=== PATIENT | male | born 1965 | race Caucasian/White ===

== ENCOUNTER 2017-01-11 01:08 | Inpatient (IN) | payer MEDICARE ==
[2017-01-11] VITALS (29 sets, daily range): BP systolic 97–151; BP diastolic 56–105
[~2017-01-11] VITALS: Ht 182.9 cm; Wt 157.0 kg
[2017-01-11] MEDS ORDERED: SODIUM CHLORIDE (ADD-VANTAGE) 100 ML IV ONE (02:08)
[2017-01-11] MEDS ORDERED: DILTIAZEM 100 MG/VIAL (CARDIZEM) ADD-VANTAGE IV ONE (02:08)
[2017-01-11] MEDS ORDERED: DILTIAZEM DRIP 100 MG in SODIUM CHLORIDE (ADD-VANTAGE) 100 ML IV SCH (02:45)
[2017-01-11] MEDS ORDERED: NITROGLYCERIN 0.4 MG SL TABS BTL 25'S SL PRN (03:45)
[2017-01-11] MEDS ORDERED: morphine INJ 10 MG/ML 1ML (SYR OR VIAL) IVP PRN (03:45)
[2017-01-11 04:37] LABS: BASOPHILS % (AUTO) 0 % (0-10); EOSINOPHILS # (AUTO) 0.2 10^3/uL (0.0-0.3); EOSINOPHILS % (AUTO) 2 % (0-10); LYMPHOCYTES # (AUTO) 2.3 X 10^3 (1.0-4.0); LYMPHOCYTES % (AUTO) 30 % (12-44); MEAN CORPUSCULAR HEMOGLOBIN 32 PG (25-34); MEAN CORPUSCULAR HGB CONC 34 G/DL (32-36); MEAN CORPUSCULAR VOLUME 93 FL (80-99); MONOCYTES # (AUTO) 0.7 X 10^3 (0.0-1.0); MONOCYTES % (AUTO) 9 % (0-12); NEUTROPHILS # (AUTO) 4.7 X 10^3 (1.8-7.8); NEUTROPHILS % (AUTO) 59 % (42-75); PLATELET COUNT 240 10^3/uL (130-400); RED BLOOD COUNT 4.43 10^6/uL (4.35-5.85); RED CELL DISTRIBUTION WIDTH 13.6 % (10.0-14.5); WHITE BLOOD COUNT 7.9 10^3/uL (4.3-11.0)
[2017-01-11 04:57] LABS: ALANINE AMINOTRANSFERASE 28 U/L (0-55); ALBUMIN 3.5 GM/DL (3.2-4.5); ANION GAP 12 MMOL/L (5-14); ASPARTATE AMINO TRANSFERASE 17 U/L (5-34); BILIRUBIN,TOTAL 0.3 MG/DL (0.1-1.0); BLOOD UREA NITROGEN 14 MG/DL (7-18); BUN/CREATININE RATIO 18; CALCIUM 8.7 MG/DL (8.5-10.1); CARBON DIOXIDE 21 MMOL/L (21-32); CHLORIDE 110 MMOL/L (98-107); GFR ESTIMATED > 60; GLUCOSE 136 MG/DL (70-105); POTASSIUM 3.7 MMOL/L (3.6-5.0); SODIUM 143 MMOL/L (135-145)
[2017-01-11] MEDS: inSUlin (REGULAR) HUMAN 1 UNIT/0.01 ML (CHARGE PER UNIT) SC SCH ×4 (06:00→20:57)
[2017-01-11] MEDS: MAGNESIUM 1 GM/100 ML IVPB 100 ML IV SCH (06:26)
[2017-01-11] MEDS: KCL 20 MEQ TAB (K-DUR) PO SCH (06:26)
[2017-01-11] MEDS: POTASSIUM CL 10MEQ/50ML IVPB 50 ML IV SCH (06:26)
[2017-01-11] MEDS ORDERED: 1/2 NS IV SOLUTION 1,000 ML IV SCH (08:00)
--- NOTE | 2017-01-11 08:17 | Diagnostic Imaging Report ---
INDICATION: New admission, atrial fibrillation, chest pain, ICU care. FINDINGS: Portable upright view of the chest is obtained without prior films available for comparison. The heart size is upper normal. Vascularity is normal. The lungs are clear. There are no effusions. IMPRESSION: There are no acute findings. Dictated by: Dictated on workstation # [id number]
--- NOTE | 2017-01-11 08:53 | Consultation-Cardiology ---
HPI-Cardiology Cardiology Consultation Date of Consultation 01/11/17 Date of Admission Time Seen by Provider: 08:10 Indication: chest pain, atrial fibrillation HPI Patient is a 51-year-old gentleman with history of paroxysmal atrial fibrillation, morbid obesity, sleep apnea, hypertension. Presented to the ER in [place] yesterday with episode of chest pain. Found to be in atrial fibrillation. Patient reports he has history of paroxysmal A. fib, diagnosed approximately 8-10 years ago. Has been maintained on beta faustina and flecainide as outpatient. Had been prescribed Eliquis in the past, but was unable to afford it. Currently denying any chest pain. Complaining of some mild dyspnea. Denies any dizziness, light headedness, syncope. Complaining of peripheral edema. This is a 51 years old gentleman with history of paroxysmal atrial fibrillation , morbid obesity and sleep apnea. Presented to [address] [place] [address] emergency room with chest pain and palpitation, found to be in atrial fibrillation, reported that he has history of paroxysmal atrial fib ablation has been having palpitation for about 2 weeks. He could not afford Eliquis, has stopped taking his oral anticoagulation and was taking aspirin 325 mg daily. Did not follow-up with a field agent at least for the past 2 years. As per work on weight loss and lost about 200 pounds Home Medications & Allergies Allergies: Coded Allergies: No Known Allergies (Verified Allergy, Unknown, 01/11/17) Home Medication List Reviewed: Yes [id number] Hx Patient Social History Marital Status: Recreational Drug Use: No Smoking Status: Former Smoker Recent Foreign Travel: No Recent Infectious Disease Expo: No Past Medical History PAF, SIGRID, obesity, HTN, DM Family Medical History Significant Family History: No Pertinent Family Hx Constitutional: No chills, No diaphoresis, No dizziness, No fever, malaise, weakness EENTM: No blurred vision, No double vision, No epistaxis, No nose pain Respiratory: No cough, dyspnea on exertion, No short of breath Cardiovascular: chest pain, edema, No Hx of Intervention, palpitations, No syncope, No vascular heart diseas Gastrointestinal: No abdominal pain, No constipation Genitourinary: No discharge, No frequency, No hematuria Musculoskeletal: No back pain, No muscle pain, No muscle weakness, No neck pain Skin: No lesions, No lumps, No rash Psychiatric/Neurological: Denies Anxiety, Denies Depressed Reviewed Test Results Reviewed Test Results Lab Laboratory Tests 01/11/17 04:20: White Blood Count 7.9, Red Blood Count 4.43, Hemoglobin 14.1, Hematocrit 41, Mean Corpuscular Volume 93, Mean Corpuscular Hemoglobin 32, Mean Corpuscular Hemoglobin Concent 34, Red Cell Distribution Width 13.6, Platelet Count 240, Mean Platelet Volume 10.0, Neutrophils (%) (Auto) 59, Lymphocytes (%) (Auto) 30 , Monocytes (%) (Auto) 9, Eosinophils (%) (Auto) 2, Basophils (%) (Auto) 0, Neutrophils # (Auto) 4.7, Lymphocytes # (Auto) 2.3, Monocytes # (Auto) 0.7, Eosinophils # (Auto) 0.2, Basophils # (Auto) 0.0, Sodium Level 143, Potassium Level 3.7, Chloride Level 110H, Carbon Dioxide Level 21, Anion Gap 12, Blood Urea Nitrogen 14, Creatinine 0.80, Estimat Glomerular Filtration Rate > 60, BUN/ Creatinine Ratio 18, Glucose Level 136H, Calcium Level 8.7, Magnesium Level 2.0 , Total Bilirubin 0.3, Aspartate Amino Transf (AST/SGOT) 17, Alanine Aminotransferase (ALT/SGPT) 28, Alkaline Phosphatase 92, Myoglobin 42.0, Troponin I < 0.30, Total Protein 6.0L, Albumin 3.5 01/11/17 09:25: Troponin I < 0.30, Triglycerides Level 83, Cholesterol Level 148, LDL Cholesterol Direct 105, VLDL Cholesterol 17, HDL Cholesterol 27L 01/11/17 10:53: Glucometer 120H ECG Impression ECG Initial ECG Rhythm: A Fib/Flutter Physical Exam Vital Signs Vital Sign - Last 12Hours 01/11/17 01/11/17 02:15 02:18 Temp 98.0 Pulse 76 Resp 20 B/P (MAP) 110/67 Pulse Ox 96 O2 Delivery Room Air Capillary Refill : General Appearance: No Apparent Distress, WD/WN HEENT: PERRL/EOMI, Normal ENT Inspection Neck: Full Range of Motion, Normal Inspection, Non Tender, Supple, No Carotid Bruit Respiratory: Chest Non Tender, Lungs Clear, Normal Breath Sounds, No Accessory Muscle Use, No Respiratory Distress Cardiovascular: No Gallop, No JVD, No Murmur, Irregularly Irregular, Other (+1 edema BLE) Gastrointestinal: Non Tender, Soft Rectal: Deferred Back: No CVA Tenderness Extremity: Non Tender, No Calf Tenderness, Pedal Edema Neurologic/Psychiatric: Alert, Oriented x3, bee farmer II-XII Norm as Tested Skin: Normal Color, Warm/Dry Lymphatic: No Adenopathy A/P-Cardiology Admission Diagnosis Chest pain Atrial fibrillation SIGRID HTN DM Assessment/Plan Chest pain, nonspecific etiology- cardiac enzymes negative, EKG reveals atrial fibrillation, rate controlled. No acute ST changes. Patient reports he has field agent he follows with in [place], however has not seen him in several years, has not had cardiac workup in over 5 years. Planning for further evaluation with Lexiscan stress test in the morning. Continue on telemetry, continue to monitor. Repeat troponin in a.m. Atrial fibrillation-unknown duration. He reports history of paroxysmal atrial fibrillation in the past, diagnosed approximately 8 years ago. Reports he was in the ER several weeks ago with episode of atrial fibrillation, as well as last night. Had been maintained on beta faustina and flecainide as an outpatient. Currently on Cardizem. We will continue to monitor. Further evaluation with 2-D echocardiogram, stress test. [id number] score is 4, yearly risk of stroke without oral anticoagulation is 4 percent, patient was on Eliquis in the past, stopped taking the medication on his own due to the cost, I will start him on Coumadin and try to achieve INR level of 2-3 Obstructive sleep apnea-maintained on CPAP. Continue to monitor. Hypertension-currently controlled. Restart home dose of Lopressor and continue to monitor blood pressure Elevated proBNP-report/history of congestive heart failure in the past. Further evaluation with 2-D echocardiogram. Continue Lasix. Obesity Diabetes mellitus-managed by primary care physician, I will hold metformin at this time Gastroesophageal reflux disease-continue current medication Thank you for allowing us to participate in the management of Mr. Thompson. Mrs. Xenia Nolan PA-C, acting as a scribe for Dr. Barragan. This is Dr. Barragan, I have seen and evaluated the patient with Xenia, he is a 51 years old gentleman admitted with atrial fibrillation, rate is controlled, converted later this afternoon to sinus rhythm, has been started on Lovenox and Coumadin, was unable to afford Eliquis in the past. Has increased risk of stroke due to multiple comorbid condition and multiple risk factors. On examination lungs were clear to auscultation bilaterally, heart is irregular. I am planning to evaluate stress test and echocardiogram, echocardiogram showed normal LV function with enlarged left atrium, planning for stress test in the morning meanwhile I will hold flecainide to rule out underlying coronary artery disease prior to any testing. Has been losing weight and encouraged to continue with weight loss. XENIA NIEVES Jan 11, 2017 08:53 BOBBY BARRAGAN MD Jan 11, 2017 16:06
[2017-01-11] MEDS ORDERED: ASPIRIN E.C. 325 MG (ECOTRIN) TABLET PO SCH (09:00)
[2017-01-11] MEDS ORDERED: CITA20TA7 PO (09:04)
[2017-01-11] MEDS ORDERED: IBUP-30 PO (09:04)
[2017-01-11] MEDS ORDERED: METF500T4 PO (09:04)
[2017-01-11] MEDS ORDERED: ASPI-808 PO (09:04)
[2017-01-11] MEDS ORDERED: LISI-552 PO (09:04)
[2017-01-11] MEDS ORDERED: FURO40TA4 PO (09:04)
[2017-01-11] MEDS ORDERED: METO50TA2 PO (09:04)
[2017-01-11] MEDS ORDERED: LANS15CA PO (09:04)
[2017-01-11] MEDS ORDERED: NITR0.4T SL (09:08)
[2017-01-11] MEDS ORDERED: FLEC100T PO (09:08)
[2017-01-11] MEDS ORDERED: RT-ALBUINH IH (09:10)
[2017-01-11] MEDS ORDERED: INFLUENZA TRIvalent 2017-2018 0.5 ML/45 MCG SYR IM ONE (09:30)
[2017-01-11 10:04] LABS: CHOLESTEROL 148 MG/DL (< 200); DIRECT LDL 105 MG/DL (1-129); TRIGLYCERIDES 83 MG/DL (<150); VLDL CHOLESTEROL 17 MG/DL (5-40)
[2017-01-11] MEDS: ASPIRIN E.C. 81 MG (ECOTRIN) TAB PO SCH (10:04)
[2017-01-11] MEDS: ENOXAPARIN 300 MG/3 ML (LOVENOX) MULTI-DOSE VIAL SQ SCH ×2 (10:04→20:58)
[2017-01-11] MEDS: NS IV 1000 ML 1,000 ML IV SCH ×2 (11:12→13:17)
--- NOTE | 2017-01-11 16:42 | History & Physical-Hospitalist ---
HPI History of Present Illness: HPI/Chief Complaint The patient is a 51-year-old white male from the [place] area. He was transferred by the [place] emergency room nurse practitioner because of atrial fibrillation with a rapid rate and secondary chest pain suggesting angina. He first was known to have atrial fibrillation about 8 years ago. He reports he spends most of his time in sinus rhythm. He had previously been on Eliquis but stopped that as he was unable to afford it. He is presently on a beta faustina and flecainide which has aided in keeping him in sinus rhythm. His has multiple sclerosis and he provides care which is stressful. He has had a couple of short spells of atrial fibrillation the last 2 weeks. Yesterday he was aware of this after he attempted to lift her. He sat down to rest thinking it would pass but it did not and when he developed the chest pressure he sought medical attention. He has subsequently reverted to sinus rhythm in the ICU Source: patient Exam Limitations: no limitations Date Seen 01/11/17 Time Seen by Provider: 16:37 Attending Physician Vince Humphries MD PCP Dilcia Harmon MD Referring Physician Date of Admission Jan 11, 2017 at 02:10 Home Medications & Allergies Home Medications Reviewed patient Home Medication Reconciliation Form Allergies Allergies Coded Allergies No Known Allergies (Verified Allergy, Unknown, 01/11/17) Past [id number]-Vfhdsj-[id number] Hx Patient Social History Marrital Status: Alcohol Use: Occasionally Uses Number of Drinks Today: 0 Alcohol Beverage of Choice: Beer, Rum Recreational Drug Use: No Smoking Status: Former Smoker Former Smoker, Quit: Jan 12, 2012 Physical Abuse Screen: No Sexual Abuse: No Recent Foreign Travel: No Contact w/other who traveled: No Recent Hopitalizations: No Recent Infectious Disease Expo: No Immunizations Up To Date Pediatric: No Seasonal Allergies Seasonal Allergies: No Surgeries Yes (R rotator cuff(x2) R total knee, R finger, BL carpal tunnel SX, R hand sx) Respiratory Yes Currently Using CPAP: Yes Cardiovascular Yes Neurological Yes Genitourinary No Gastrointestinal Yes Gastroesophageal Reflux, Hiatal Hernia Musculoskeletal Yes Degenerate Disk Disease, Arthritis, Back Injury, Chronic Back Pain Endocrine History of Endocrine Disorders: Yes HEENT History of HEENT Disorders: No Cancer No Psychosocial History of Psychiatric Problem: Yes Behavioral Health Disorders: Depression Integumentary History of Skin or Integumenta: No Blood Transfusions History of Blood Disorders: No Adverse Reaction to a Blood Tr: No Family Medical History Significant Family History: No Pertinent Family Hx Family Hx: Cardiovascular disease 19 MOTHER G8 SISTER G8 BROTHER Diabetes mellitus G8 SISTER G8 BROTHER G8 BROTHER FH: breast cancer FH: melanoma 19 MOTHER G8 SISTER Review of Systems Constitutional: see HPI EENTM: no symptoms reported Respiratory: no symptoms reported Cardiovascular: see HPI, chest pain, palpitations Gastrointestinal: no symptoms reported Genitourinary: no symptoms reported Musculoskeletal: no symptoms reported Skin: no symptoms reported Psychiatric/Neurological: No Symptoms Reported Physical Exam Physical Exam Vital Signs Vital Sign - Last 12Hours 01/11/17 01/11/17 02:15 02:18 Temp 98.0 Pulse 76 Resp 20 B/P (MAP) 110/67 Pulse Ox 96 O2 Delivery Room Air Capillary Refill : General Appearance: No Apparent Distress, WD/WN Eyes: Bilateral Eye Normal Inspection HEENT: Normal ENT Inspection Neck: Normal Inspection Respiratory: Chest Non Tender, Lungs Clear, Normal Breath Sounds, No Accessory Muscle Use, No Respiratory Distress Cardiovascular: Regular Rate, Rhythm, No Edema, No Gallop, No JVD, No Murmur, Normal Peripheral Pulses Gastrointestinal: Normal Bowel Sounds, No Organomegaly, No Pulsatile Mass, Non Tender, Soft Back: Normal Inspection, No CVA Tenderness, No Vertebral Tenderness Extremity: Normal Capillary Refill, Normal Inspection, Normal Range of Motion, Non Tender, No Calf Tenderness, No Pedal Edema Neurologic/Psychiatric: Alert, Oriented x3, No Motor/Sensory Deficits, Normal Mood/Affect Skin: Normal Color, Warm/Dry Lymphatic: No Adenopathy Results Results/Procedures Lab Laboratory Tests 01/11/17 04:20 Assessment/Plan Admission Diagnosis 1.atrial fibrillation with rapid ventricular response. 2.chest pain while tachycardic Assessment and Plan Await cardiology recommendations and evaluation Clinical Quality Measures DVT/VTE Risk/Contraindication: Risk Factor Score Per Nursin RFS Level Per Nursing on Admit: 4+=Very High VINCE HUMPHRIES MD Jan 11, 2017 16:42
[2017-01-11] MEDS ORDERED: warFARin 10 MG (COUMADIN) TAB PO SCH (18:00)
[2017-01-11] MEDS: meTOprolol TARTRATE 50 MG (LOPRESSOR) TAB PO SCH (20:57)
[2017-01-12] VITALS: BP 159/88
[2017-01-12] MEDS: NS IV 1000 ML 1,000 ML IV SCH (02:23)
[2017-01-12 04:00] VITALS: BP 159/90
[2017-01-12] MEDS: POTASSIUM CL 10MEQ/50ML IVPB 50 ML IV SCH (06:00)
[2017-01-12] MEDS: inSUlin (REGULAR) HUMAN 1 UNIT/0.01 ML (CHARGE PER UNIT) SC SCH ×2 (06:00→12:11)
[2017-01-12] MEDS: KCL 20 MEQ TAB (K-DUR) PO SCH (06:00)
[2017-01-12] MEDS: MAGNESIUM 1 GM/100 ML IVPB 100 ML IV SCH (06:00)
[2017-01-12] MEDS ORDERED: PANTOPRAZOLE 20 MG TABLET (PROTONIX) PO SCH (07:00)
[2017-01-12] MEDS ORDERED: CATHETER FLUSH 10 ML SYR IV PRN (08:30)
[2017-01-12] MEDS ORDERED: REGADENOSON 0.4 MG/5 ML SYR (LEXISCAN) IV ONE ×2 (09:00→10:30)
[2017-01-12] MEDS ORDERED: FUROSEMIDE 40 MG (LASIX) TAB PO SCH (09:00)
[2017-01-12 10:17] VITALS: BP 146/91
[2017-01-12 12:00] VITALS: BP 148/87
[2017-01-12] MEDS: meTOprolol TARTRATE 50 MG (LOPRESSOR) TAB PO SCH (12:11)
[2017-01-12] MEDS: ASPIRIN E.C. 81 MG (ECOTRIN) TAB PO SCH (12:11)
[2017-01-12 12:15] LABS: INR 1.1 (0.8-1.4); PROTHROMBIN TIME PATIENT 14.2 SEC (12.2-14.7)
[2017-01-12] MEDS: ENOXAPARIN 300 MG/3 ML (LOVENOX) MULTI-DOSE VIAL SQ SCH (12:17)
--- NOTE | 2017-01-12 14:16 | Cardiology Progress Note ---
Subjective Date Seen by Provider: Jan 12, 2017 Time Seen by Provider: 11:00 Subjective/Events-last exam patient is laying down in bed, feeling better, demanding to go home. Stress test showed no ischemia Review of Systems General: No Chills, No Night Sweats, No Fatigue, No Malaise, No Appetite, No Other HEENT: No Head Aches, No Visual Changes, No Eye Pain, No Ear Pain, No Dysphasia , No Sinus Congestion, No Post Nasal Drip, No Sore Throat, No Other Pulmonary: No Dyspnea, No Cough, No Pleuritic Chest Pain, No Other Objective-Cardiology Exam Last Set of Vital Signs Vital Signs 01/12/17 12:00 Temp 98.0 Pulse 66 Resp 20 B/P (MAP) 148/87 Pulse Ox 97 O2 Delivery Room Air Capillary Refill : I&O Intake and Output 01/13/17 00:00 Intake Total 1335 ml Balance 1335 ml Intake Oral 350 ml IV Total 985 ml # Voids 4 # Bowel Movements 1 General: Alert, Oriented X3, Cooperative HEENT: Atraumatic, PERRLA Neck: Supple, No JVD, No Thyromegaly Lungs: Clear to Auscultation, Normal Air Movement Heart: Regular Rate, Normal S1, Normal S2, No Murmurs Abdomen: Normal Bowel Sounds, Soft, No Tenderness, No Hepatosplenomegaly, No Masses Extremities: No Clubbing, No Cyanosis, No Edema, Normal Pulses, No Tenderness/ Swelling Skin: No Rashes, No Breakdown, No Significant Lesion Neuro: Normal Gait, Normal Speech, Strength at 5/5 X4 Ext, Normal Tone, Sensation Intact Psych/Mental Status: Mental Status NL, Mood NL Results Lab Laboratory Tests Test 01/11/17 16:38 01/11/17 20:54 01/12/17 04:30 01/12/17 06:24 Range/Units Glucometer 97 113 H 123 H 70-110 MG/DL Prothrombin Time 14.2 12.2-14.7 SEC INR Comment 1.1 0.8-1.4 Troponin I < 0.30 <0.30 NG/ML Test 01/12/17 11:41 Range/Units Glucometer 109 70-110 MG/DL A/P-Cardiology Admission Diagnosis Chest pain Atrial fibrillation SIGRID HTN DM Assessment/Plan Chest pain, nonspecific etiology- cardiac enzymes negative, EKG reveals atrial fibrillation, rate controlled. No acute ST changes. Patient reports he has foreign trade teacher he follows with in [place], however has not seen him in several years, has not had cardiac workup in over 5 years. stress test showed no ischemia or infarction. Atrial fibrillation-unknown duration. He reports history of paroxysmal atrial fibrillation in the past, diagnosed approximately 8 years ago. Reports he was in the ER several weeks ago with episode of atrial fibrillation, as well as last night. Had been maintained on beta faustina and flecainide as an outpatient. Currently on Cardizem. echocardiogram showed normal left ventricular size and function. Stress test showed no ischemia or infarction, I will restart flecainide and discharged home [id number] score is 4, yearly risk of stroke without oral anticoagulation is 4 percent, patient was on Eliquis in the past, stopped taking the medication on his own due to the cost, continue on Coumadin and discharged on Coumadin and Lovenox and follow-up as an outpatient, monitor INR closely Obstructive sleep apnea-maintained on CPAP. Continue to monitor. Hypertension, Good controlled, continue current medications and monitor Elevated BNP-report/history of congestive heart failure in the past. Further evaluation with 2-D echocardiogram. Continue Lasix. Obesity Diabetes mellitus-managed by primary care physician, I will hold metformin at this time Gastroesophageal reflux disease-continue current medication Clinical Quality Measures DVT/VTE Risk/Contraindication: Risk Factor Score Per Nursin RFS Level Per Nursing on Admit: 4+=Very High BOBBY BROOKS MD Jan 12, 2017 14:16
[2017-01-12] MEDS ORDERED: ENOX300V3 SQ (14:19)
[2017-01-12] MEDS ORDERED: WARF5TAB PO (14:19)
--- NOTE | 2017-01-12 23:04 | STRESS TEST ---
DATE OF SERVICE: 01/12/2017 LEXISCAN MYOVIEW STRESS TEST REPORT Baseline heart rate is 70. Baseline blood pressure 146/91. Baseline EKG is sinus rhythm with no ischemic changes. In summary, the patient was injected with 10.97 mCi of technetium-99 Myoview and the resting images were obtained. Then, the patient received 0.4 mg of Lexiscan followed by 31.6 mCi of technetium-99 Myoview. Throughout the test, there were no EKG changes. The resting and stress images were reviewed and compared in the short axis, horizontal long axis, and vertical long axis views. Review of the images showed mild decreased uptake at the mid to apical anterior wall with subtle reversibility. There is fixed defect at the base of the inferior wall secondary to the diaphragmatic attenuation. SSS is 4, SDS zero, TID value 0.75. On the gated images, the left ventricle appeared to be prominent due to patient body habitus with end diastolic volume 179 mL, end systolic volume 106 mL, hypokinesia at the lateral wall with calculated ejection fraction 41%. CONCLUSION: 1. The patient tolerated Lexiscan well. 2. Extracardiac attenuation affecting the quality of the images with questionable decrease uptake at the anterior wall, no significant reversibility. 3. Prominent left ventricle with mild hypokinesia at the lateral wall, calculated ejection fraction 41%. Job ID: [id number] DocumentID: [id number] Dictated Date: 01/12/2017 16:11:44 Solar Photovoltaic Designer Date: 01/12/2017 21:51:16 Dictated By: BOBBY BROOKS MD [facility]
== END 2017-01-12 13:50 | disposition home or self-care (01) | DRG 309 ==
LOC: ICU 02:10
PROVIDERS: ADMIT Internal Medicine; ATTEND Internal Medicine
DX: I48.91 Unspecified atrial fibrillation (principal); R07.9 Chest pain, unspecified; E66.01 Morbid (severe) obesity due to excess calories; Z68.42 Body mass index [BMI] 45.0-49.9, adult; I10 Essential (primary) hypertension; R60.0 Localized edema; G47.33 Obstructive sleep apnea (adult) (pediatric); E11.9 Type 2 diabetes mellitus without complications; K21.9 Gastro-esophageal reflux disease without esophagitis; K44.9 Diaphragmatic hernia without obstruction or gangrene; M19.91 Primary osteoarthritis, unspecified site; M54.9 Dorsalgia, unspecified; F32.9 Major depressive disorder, single episode, unspecified; Z87.891 Personal history of nicotine dependence; Z91.19 Patient's noncompliance with other medical treatment and regimen; Z96.651 Presence of right artificial knee joint
CPT/HCPCS: 36415; 71010; 78452; 80053; 80061; 82962; 83735; 83874; 84484; 85025; 85610; 93005; 93017; 93306

== ENCOUNTER 2017-01-17 09:02 | Outpatient (RCR) | payer MEDICARE ==
[2017-01-14 12:06] LABS: INR 1.4 (0.8-1.4); PROTHROMBIN TIME PATIENT 17.4 SEC (12.2-14.7)
[~2017-01-17 09:02] MED LIST: ASPI-808 PO; CITA20TA7 PO; ENOX300V4 SQ; FLEC100T PO; FURO40TA4 PO; IBUP-30 PO; LANS15CA PO; LISI-552 PO; METF500T4 PO; METO50TA15 PO; NITR0.4T SL; RT-ALBUINH IH; WARF5TAB PO
[2017-01-17 09:27] LABS: INR 1.4 (0.8-1.4); PROTHROMBIN TIME PATIENT 17.1 SEC (12.2-14.7)
== END 2017-04-14 | disposition home or self-care (01) ==
LOC: LAB 09:02
PROVIDERS: ATTEND Internal Medicine Cardiovascular Disease
DX: I48.91 Unspecified atrial fibrillation (principal)
CPT/HCPCS: 36415; 85610

== ENCOUNTER 2019-05-01 09:09 | Outpatient (RCR) | payer MEDICARE ==
[~2019-05-01 09:09] MED LIST changes: -CITA20TA7 PO; +CITA20TA9 PO; +METF-397 PO; -METF500T4 PO
[2019-05-01 10:22] LABS: INR 1.8 (0.8-1.4); PROTHROMBIN TIME PATIENT 21.8 SEC (12.2-14.7)
== END 2019-07-30 | disposition home or self-care (01) ==
LOC: LAB 09:09
PROVIDERS: ATTEND Family Medicine
DX: Z51.81 Encounter for therapeutic drug level monitoring (principal); Z79.01 Long term (current) use of anticoagulants
CPT/HCPCS: 36415; 85610

== ENCOUNTER → 2019-08-09 | Outpatient (CLI) | payer MEDICARE ==
[~2019-08-09] MED LIST changes: -WARF5TAB PO; +WARF5TAB2 PO
[2019-08-09 12:23] LABS: ALANINE AMINOTRANSFERASE 43 U/L (0-55); ALKALINE PHOSPHATASE 100 U/L (40-136); BILIRUBIN,TOTAL 0.4 MG/DL (0.1-1.0); BUN/CREATININE RATIO 16; CALCIUM 9.3 MG/DL (8.5-10.1); CARBON DIOXIDE 26 MMOL/L (21-32); CHLORIDE 100 MMOL/L (98-107); GFR ESTIMATED > 60; GLUCOSE 211 MG/DL (70-105); SODIUM 139 MMOL/L (135-145); TOTAL PROTEIN 6.8 GM/DL (6.4-8.2)
[2019-08-09 12:24] LABS: ALBUMIN 3.9 GM/DL (3.2-4.5)
[2019-08-09 15:01] LABS: INR 2.7 (0.8-1.4); PROTHROMBIN TIME PATIENT 28.6 SEC (12.2-14.7)
[2019-08-09 15:16] LABS: TRIGLYCERIDES 323 MG/DL (<150); VLDL CHOLESTEROL 65 MG/DL (5-40)
[2019-08-09 15:21] LABS: CHOLESTEROL 201 MG/DL (< 200)
[2019-08-09 15:22] LABS: HDL CHOLESTEROL 35 MG/DL (40-60)
== END ==
LOC: LAB FS 11:34
PROVIDERS: ATTEND Family Medicine
DX: I48.91 Unspecified atrial fibrillation (principal); E11.9 Type 2 diabetes mellitus without complications
CPT/HCPCS: 36415; 80053; 80061; 82043; 83036; 85610

== ENCOUNTER 2021-10-16 12:51 | Emergency (ER) | payer MEDICARE ==
[~2021-10-16] VITALS: Ht 182.9 cm; Wt 152.9 kg
[~2021-10-16 12:51] MED LIST changes: -LISI-552 PO; +LISI20TA26 PO
--- NOTE | 2021-10-16 13:25 | ED Abdominal Pain ---
General Chief Complaint: Abdominal/GI Problems Stated Complaint: GROIN PAIN Source of Information: Patient Exam Limitations: No Limitations History of Present Illness Date Seen by Provider: Oct 16, 2021 Time Seen by Provider: 13:10 Initial Comments Patient is a 55yo male who presents to the ED with a chief complaint of diffuse abdominal pain. pain that radiates into the right groin. Seen by Dr Song about 2-3 weeks ago and has a right inguinal hernia. He was not amenable to surgery at the time of visit due to personal issues. He has been wering briefs for support. But he has to take care of his disabled and that requires lifting. He states the pain has worsened over the last couple of days. N/V. decreased urine output and Bowel movements that are uncomfortable and "not as productive". No F/C. No URI symptoms. Nothing specifically makes the pain better or worse. "Pain medications" don't really help. Only prior history of abdominal surgeries are 2-3 unbilical hernia repairs - with mesh. All other ROS reviewed and neg except as stated. Timing/Duration: 1 Week Severity/Quality: Moderate, Cramping Location: Generalized Abdomen Radiation: Groin (right) Activities at Onset: None Modifying Factors: Worsens With Movement Associated Symptoms: Nausea/Vomiting Allergies and Home Medications Allergies Coded Allergies: No Known Allergies (Verified Allergy, Unknown, 01/11/17) Patient Home Medication List Home Medication List Reviewed: Yes Albuterol Sulfate (Proair Hfa) 1 Puff Puff, 2 PUFF IH Q4H PRN for SHORTNESS OF BREATH, (Reported) Entered as Reported by: LUIS ARAUJO on 01/11/17 0910 Citalopram Hydrobromide (Citalopram HBr) 20 Mg Tablet, 20 MG PO HS, (Reported) Entered as Reported by: LUIS ARAUJO on 01/11/17 0904 Enoxaparin Sodium (Enoxaparin Sodium) 300 Mg/3 Ml Vial, 150 MG SQ Q12H Prescribed by: BOBBY BROOKS on 01/12/17 1419 Flecainide Acetate (Flecainide Acetate) 100 Mg Tablet, 100 MG PO BID, (Reported) Entered as Reported by: LUIS ARAUJO on 01/11/17 0908 Furosemide (Furosemide) 40 Mg Tablet, 40 MG PO DAILY, (Reported) Entered as Reported by: LUIS ARAUJO on 01/11/17 09 Ibuprofen (Advil) 200 Mg Tablet, 800 MG PO BID, (Reported) Entered as Reported by: LUIS ARAUJO on 01/11/17 09 Lansoprazole (Prevacid 24Hr) 15 Mg Capsule.dr, 15 MG PO DAILY, (Reported) Entered as Reported by: LUIS ARAUJO on 01/11/17 09 Lisinopril (Lisinopril) 20 Mg Tablet, 20 MG PO BID, (Reported) Entered as Reported by: LUIS ARAUJO on 01/11/17 09 Metformin HCl (Metformin HCl) 500 Mg Tablet, 500 MG PO BID WITH MEALS, (Reported) Entered as Reported by: LUIS ARAUJO on 01/11/17903 Metoprolol Tartrate (Metoprolol Tartrate) 50 Mg Tablet, 50 MG PO BID, (Reported) Entered as Reported by: LUIS ARAUJO on 01/11/17 09 Naproxen (Naprosyn) 500 Mg Tablet, 500 MG PO BID Prescribed by: GLORY MAHARAJ on 10/16/21 1530 Nitroglycerin (Nitrostat) 0.4 Mg Tab.subl, 0.4 MG SL UD PRN for CHEST PAIN, (Reported) Entered as Reported by: LUIS ARAUJO on 01/11/17 09 Ondansetron (Ondansetron Odt) 8 Mg Tab.rapdis, 8 MG PO Q8H PRN for nausea Prescribed by: GLORY MAHARAJ on 10/16/21 153 Warfarin Sodium (Coumadin) 5 Mg Tablet, 5 MG PO DAILY Prescribed by: BOBBY BROOKS on 01/12/17 1419 Review of Systems Review of Systems Constitutional: see HPI EENTM: No Symptoms Reported Respiratory: No Symptoms Reported Cardiovascular: No Symptoms Reported Gastrointestinal: Abdominal Pain, Nausea, Vomiting, Other (porr bowel movements) Genitourinary: Pain, Urgency, Other ("dribbling") Musculoskeletal: no symptoms reported Skin: no symptoms reported Psychiatric/Neurological: No Symptoms Reported All Other Systems Reviewed Negative Unless Noted: Yes Past Yctmcmr-Zfctjo-Yhgbuk Hx Patient Social History Tobacco Use?: Yes Tobacco type used: Cigars Smoking Status: Current Everyday Smoker Smokeless Tobacco Frequency: Never a User Use of E-Cig and/or Vaping dev: No Use of E-Cig and/or Vaping Remy: Never a User Substance use?: No Alcohol Use?: Yes Alcohol Frequency: Once in a while Pt feels they are or have been: No Immunizations Up To Date PED Vaccines UTD: No COVID19 Vaccine Cbx Operator: MODERNA Seasonal Allergies Seasonal Allergies: No Past Medical History Surgeries: Yes (R rotator cuff(x2) R total knee, R finger, BL carpal tunnel SX, R hand sx) Respiratory: Yes Sleep Apnea Currently Using CPAP: Yes Cardiac: Yes Neurological: Yes Genitourinary: No Gastrointestinal: Yes Gastroesophageal Reflux, Hiatal Hernia Musculoskeletal: Yes Degenerate Disk Disease, Arthritis, Back Injury, Chronic Back Pain Endocrine: Yes HEENT: No Cancer: No Psychosocial: Yes Depression Integumentary: No Blood Disorders: No Adverse Reaction/Blood Tranf: No Family Medical History Cardiovascular disease 19 MOTHER G8 SISTER G8 BROTHER Diabetes mellitus G8 SISTER G8 BROTHER G8 BROTHER FH: breast cancer FH: melanoma 19 MOTHER G8 SISTER No Pertinent Family Hx Physical Exam Vital Signs Vital Signs - First Documented 10/16/21 10/16/21 13:00 15:51 Temp 36.0 Pulse 82 Resp 17 B/P (MAP) 133/75 (94) Pulse Ox 98 O2 Delivery Room Air Capillary Refill : Height/Weight/BMI Height: 6'0.00" Weight: 346lbs. 3.2oz. [id number]; 46.7 BMI Method: General Appearance: WD/WN, mild distress HEENT: PERRL/EOMI Respiratory: lungs clear, normal breath sounds, no respiratory distress, no accessory muscle use Cardiovascular: regular rate, rhythm Gastrointestinal: soft, tenderness (diffuse; BS slightly huperactive) Extremities: normal range of motion, normal inspection Neurologic/Psychiatric: alert, normal mood/affect, oriented x 3 Skin: normal color, warm/dry Progress/Results/Core Measures Results/Orders Lab Results Laboratory Tests Test 10/16/21 13:37 10/16/21 13:53 Range/Units White Blood Count 7.9 4.3-11.0 10^3/uL Red Blood Count 4.66 4.30-5.52 10^6/uL Hemoglobin 15.4 13.3-17.7 g/dL Hematocrit 45 40-54 % Mean Corpuscular Volume 96 80-99 fL Mean Corpuscular Hemoglobin 33 25-34 pg Mean Corpuscular Hemoglobin Concent 34 32-36 g/dL Red Cell Distribution Width 13.1 10.0-14.5 % Platelet Count 238 130-400 10^3/uL Mean Platelet Volume 9.4 9.0-12.2 fL Immature Granulocyte % (Auto) 1 % Neutrophils (%) (Auto) 63 42-75 % Lymphocytes (%) (Auto) 28 12-44 % Monocytes (%) (Auto) 7 0-12 % Eosinophils (%) (Auto) 2 0-10 % Basophils (%) (Auto) 1 0-10 % Neutrophils # (Auto) 5.0 1.8-7.8 10^3/uL Lymphocytes # (Auto) 2.2 1.0-4.0 10^3/uL Monocytes # (Auto) 0.5 0.0-1.0 10^3/uL Eosinophils # (Auto) 0.2 0.0-0.3 10^3/uL Basophils # (Auto) 0.0 0.0-0.1 10^3/uL Immature Granulocyte # (Auto) 0.0 0.0-0.1 10^3/uL Sodium Level 138 135-145 MMOL/L Potassium Level 5.1 H 3.6-5.0 MMOL/L Chloride Level 104 98-107 MMOL/L Carbon Dioxide Level 22 21-32 MMOL/L Anion Gap 12 5-14 MMOL/L Blood Urea Nitrogen 24 H 7-18 MG/DL Creatinine 0.94 0.60-1.30 MG/DL Estimat Glomerular Filtration Rate 95 BUN/Creatinine Ratio 26 Glucose Level 172 H 70-105 MG/DL Calcium Level 10.0 8.5-10.1 MG/DL Corrected Calcium 9.9 8.5-10.1 MG/DL Total Bilirubin 0.4 0.1-1.0 MG/DL Aspartate Amino Transf (AST/SGOT) 34 5-34 U/L Alanine Aminotransferase (ALT/SGPT) 60 H 0-55 U/L Alkaline Phosphatase 100 40-136 U/L Total Protein 7.1 6.4-8.2 GM/DL Albumin 4.1 3.2-4.5 GM/DL Urine Color YELLOW Urine Clarity SL CLOUDY Urine pH 5.5 5-9 Urine Specific [place] 1.020 1.016-1.022 Urine Protein NEGATIVE NEGATIVE Urine Glucose (UA) NEGATIVE NEGATIVE Urine Ketones NEGATIVE NEGATIVE Urine Nitrite NEGATIVE NEGATIVE Urine Bilirubin NEGATIVE NEGATIVE Urine Urobilinogen 0.2 < = 1.0 MG/DL Urine Leukocyte Esterase NEGATIVE NEGATIVE Urine RBC (Auto) NEGATIVE NEGATIVE Urine RBC NONE /HPF Urine WBC NONE /HPF Urine Squamous Epithelial Cells 0-2 /HPF Urine Crystals NONE /LPF Urine Bacteria NEGATIVE /HPF Urine Casts NONE /LPF Urine Mucus NEGATIVE /LPF Urine Culture Indicated NO My Orders Orders - GLORY MAHARAJ MD Ua Culture If Indicated (10/16/21 13:17) Cbc With Automated Diff (10/16/21 13:17) Comprehensive Metabolic Panel (10/16/21 13:17) Bladder Scan (10/16/21 13:17) Ed Iv/Invasive Line Start (10/16/21 13:17) Fentanyl Inj (Sublimaze Injection) (10/16/21 13:30) Ct Abdomen/Pelvis Wo (10/16/21 14:21) Vital Signs/I&O 10/16/21 10/16/21 13:00 15:51 Temp 36.0 36.2 Pulse 82 68 Resp 17 17 B/P (MAP) 133/75 (94) 144/91 Pulse Ox 98 O2 Delivery Room Air Room Air Progress Progress Note : Time: 15:25 Progress Note Patient declined pain medications. HIs work up including labs and imaging are reassuring that no acute infectious or surgical process is present. I offered naproxen and zofran. He is agreeable. He will follow up with Dr Song for further management of his right inguinal hernia. REturn precautions provided. All questions are sought and answered. Departure Impression Primary Impression: Abdominal pain Qualified Codes: R10.84 - Generalized abdominal pain Additional Impression: Right inguinal hernia Disposition: 01 HOME, SELF-CARE Condition: Stable Departure-Patient Inst. Decision time for Depature: 15:27 Referrals: CONRADO SANTAMARIA MD (PCP/Family) Primary Care Physician Patient Instructions: Groin Hernia (DC) Add. Discharge Instructions: Drink plenty of fluids to stay well hydrated. Naproxen 500mg twice a day with food as needed for pain. Zofran 8mg every 8 hours as needed for nausea. If you have worsening pain, with vomiting or fever, please come back to the Emergency Department for re-evaluation. Please call Dr Song's office when you have your sorted out to make a plan for hernia repair. Scripts Ondansetron (Ondansetron Odt) 8 Mg Tab.rapdis 8 MG PO Q8H PRN for nausea, #20 TAB Prov: GLORY MAHARAJ MD 10/16/21 Naproxen (Naprosyn) 500 Mg Tablet 500 MG PO BID, #30 TAB 0 Refills Prov: GLORY MAHAARJ MD 10/16/21 Copy Copies To 1: MARILYN SONG DO Copies To 2: CONRADO SANTAMARIA MD, KATHRYN M MD Oct 16, 2021 13:25
[2021-10-16] MEDS ORDERED: fentaNYL INJ 100 MCG/2 ML AMP IVP ONE (13:30)
[2021-10-16 13:51] LABS: BASOPHILS % (AUTO) 1 % (0-10); EOSINOPHILS # (AUTO) 0.2 10^3/uL (0.0-0.3); EOSINOPHILS % (AUTO) 2 % (0-10); HEMATOCRIT 45 % (40-54); HEMOGLOBIN 15.4 g/dL (13.3-17.7); LYMPHOCYTES # (AUTO) 2.2 10^3/uL (1.0-4.0); LYMPHOCYTES % (AUTO) 28 % (12-44); MEAN CORPUSCULAR HEMOGLOBIN 33 pg (25-34); MEAN CORPUSCULAR HGB CONC 34 g/dL (32-36); MEAN CORPUSCULAR VOLUME 96 fL (80-99); MEAN PLATELET VOLUME 9.4 fL (9.0-12.2); MONOCYTES # (AUTO) 0.5 10^3/uL (0.0-1.0); MONOCYTES % (AUTO) 7 % (0-12); NEUTROPHILS % (AUTO) 63 % (42-75); PLATELET COUNT 238 10^3/uL (130-400); WHITE BLOOD COUNT 7.9 10^3/uL (4.3-11.0)
[2021-10-16 13:55] LABS: ALBUMIN 4.1 GM/DL (3.2-4.5); POTASSIUM 5.1 MMOL/L (3.6-5.0)
[2021-10-16 13:57] LABS: TOTAL PROTEIN 7.1 GM/DL (6.4-8.2)
[2021-10-16 13:59] LABS: BILIRUBIN,TOTAL 0.4 MG/DL (0.1-1.0)
[2021-10-16 14:01] LABS: CREATININE SERUM 0.94 MG/DL (0.60-1.30)
[2021-10-16 14:09] LABS: BILIRUBIN,URINE NEGATIVE (NEGATIVE); CLARITY,URINE SL CLOUDY; COLOR,URINE YELLOW; GLUCOSE, URINE (UA) NEGATIVE (NEGATIVE); KETONES,URINE NEGATIVE (NEGATIVE); LEUKOCYTE ESTERASE ,URINE NEGATIVE (NEGATIVE); NITRITE,URINE NEGATIVE (NEGATIVE); PH,URINE 5.5 (5-9); PROTEIN,URINE NEGATIVE (NEGATIVE)
[2021-10-16 14:16] LABS: BACTERIA,URINE NEGATIVE /HPF; SQUAMOUS EPITHELIAL CELL,UR 0-2 /HPF
--- NOTE | 2021-10-16 14:57 | Diagnostic Imaging Report ---
CT ABDOMEN/PELVIS WO TECHNIQUE: Unenhanced CT imaging of the abdomen and pelvis was performed. 2-D reformats are created and submitted for interpretation. Automatic exposure controls were utilized to optimize patient dose. INDICATION: Abdominal pain COMPARISON: None available. FINDINGS: Evaluation of the abdominal viscera is suboptimal without contrast. Lower chest: The lung bases are clear. No pericardial or pleural effusion. Peritoneum: No free intraperitoneal air or fluid. Liver and biliary system: Unenhanced liver is normal. Contracted gallbladder without radiopaque gallstones. No biliary duct dilatation. Spleen and Pancreas: Spleen is normal. Unenhanced pancreas is grossly normal. Adrenals: Normal. tract: No renal or ureteral calculi. No obstructive uropathy. Urinary bladder is decompressed. Prostate is not enlarged. GI tract: Stomach is decompressed. No bowel obstruction. Descending colon diverticulosis without diverticulitis. Normal appendix. Vasculature and Lymph nodes: Normal caliber aorta. No abdominal or pelvic lymphadenopathy. Musculoskeletal: No concerning osseous lesion. Chronic bilateral pars defects of L5 with grade 1 anterolisthesis. Prior ventral hernia repair without recurrent hernia. IMPRESSION: 1. No acute obstructive or inflammatory process. 2. No urinary tract calculi. Dictated by: Dictated on workstation # [id number]
[2021-10-16] MEDS ORDERED: NAPR-1071 PO (15:30)
[2021-10-16] MEDS ORDERED: ONDA8TAB13 PO (15:30)
[2021-10-16 15:51] VITALS: BP 144/91
== END 2021-10-16 15:51 | disposition home or self-care (01) ==
LOC: EDUNIT# 12:51 → ER 12:54
DX: K40.90 Unilateral inguinal hernia, without obstruction or gangrene, not specified as recurrent (principal); G47.30 Sleep apnea, unspecified; F17.290 Nicotine dependence, other tobacco product, uncomplicated; Z99.89 Dependence on other enabling machines and devices
CPT/HCPCS: 36415; 74176; 80053; 81000; 85025

== ENCOUNTER 2021-10-28 05:34 | Outpatient (CLI) | payer MEDICARE ==
[~2021-10-28] VITALS: Ht 182.9 cm; Wt 154.2 kg
[~2021-10-28 05:34] MED LIST changes: +NAPR-1071 PO; +ONDA8TAB13 PO
[2021-10-28] MEDS ORDERED: WARF7.5T3 PO (12:10)
== END 2021-10-28 13:30 | disposition home or self-care (01) ==
LOC: PREOP 05:34
PROVIDERS: ATTEND Surgery
DX: Z01.818 Encounter for other preprocedural examination (principal)

== ENCOUNTER 2021-11-04 08:28 | Day surgery (SDC) | payer MEDICARE ==
[2021-11-04] VITALS (11 sets, daily range): BP systolic 105–150; BP diastolic 59–75
[~2021-11-04] VITALS: Ht 182.9 cm; Wt 154.2 kg
[~2021-11-04 08:28] MED LIST changes: +WARF7.5T3 PO
[2021-11-04] MEDS ORDERED: ceFAZolin INJECTION 2,000 MG in NS (IVPB) 50 ML IV ONE (09:00)
[2021-11-04] MEDS: LACTATED RINGERS 1,000 ML IV PRN ×3 (09:34→14:06)
[2021-11-04] MEDS ORDERED: LIDOCAINE/EPI 2% 1:200,00 (XYLOCAINE) 20 ML VIAL ONE (10:43)
[2021-11-04] MEDS ORDERED: MIDAZOLAM 2 MG/2 ML (VERSED) VIAL ONE (10:59)
[2021-11-04] MEDS ORDERED: LIDOCAINE PF 2% 5 ML (XYLOCAINE) VIAL ONE (10:59)
[2021-11-04] MEDS ORDERED: ROCURONIUM 10 MG/ML 5 ML SYRINGE IV ONE ×3 (10:59→14:32)
[2021-11-04] MEDS ORDERED: fentaNYL INJ 100 MCG/2 ML AMP ONE ×2 (10:59→15:59)
[2021-11-04] MEDS ORDERED: proPOfol 200 MG/20 ML (DIPRIVAN) VIAL IV ONE ×2 (10:59→11:37)
--- NOTE | 2021-11-04 11:03 | Progress Note-Pre Operative ---
Pre-Operative Progress Note Date of Available H&P: Oct 08, 2021 Date H&P Reviewed: Nov 04, 2021 Time H&P Reviewed: 11:01 History & Physical: H&P Reviewed, Patient Examed, No changes noted Pre-Operative Diagnosis: Right inguinal hernia MARILYN SONG DO Nov 04, 2021 11:03
[2021-11-04] MEDS ORDERED: methylPREDNISolone 125 MG (Solu-MEDROL) VIAL ONE (11:37)
[2021-11-04] MEDS ORDERED: SUCCINYLCHOLINE INJ 100 MG/5 ML SYR/VIAL ONE (11:37)
[2021-11-04] MEDS ORDERED: LIDOCAINE/EPI 2% 1:200,00 (XYLOCAINE) 10 ML VIAL IJ ONE (11:45)
[2021-11-04] MEDS ORDERED: HYDROmorphone 2 MG/ML VIAL (DILAUDID) ONE (13:38)
[2021-11-04] MEDS ORDERED: SEVOFLURANE (ULTANE) 15 ML INHAL SOLN ONE (15:21)
--- NOTE | 2021-11-04 15:39 | Progress Note-Post Operative ---
Post-Operative Progess Note Surgeon (s)/Oncology Radiation Physician (s) Surgeon MARILYN SONG DO Oncology Radiation Physician: Drew Pre-Operative Diagnosis Right inguinal hernia Post-Operative Diagnosis Left Indirect Inguinal hernia Right direct inguinal hernia B/L cord lipoma Procedure & Operative Findings Date of Procedure 11/04/21 Procedure Performed/Findings 1) B/L Laparoscopic inguinal herniarraphy with mesh placement 2) Excision of B/L Cord Lipoma After informed consent was obtained, the patient was brought to the operating room and placed on the operating table in a supine position. He was sterilely prepped and draped in a normal fashion. Local lidocaine was used to infiltrate the skin above the umbilicus. I made an incision with #11 blade, carried down to the skin into subcutaneous tissue and then deepened down the subcutaneous tissue with Bovie electrocautery down to the fascia. Fascia was incised with Bovie electrocautery and bluntly entered the abdomen, swept a finger around, placed 0 Vicryl [id number] suture and placed limited trocar port under direct visualization. Created pneumoperitoneum and noted adhesions to the umbilical hernia mesh. Placed two 8 mm ports about 10 cm on either side of the midline port using a local lidocaine, 11 blade for stab incision and then advanced the robotic port under direct visualization. I then used a Ligasure to take down the midline adhesions so that I could see. I noted a direct hernia on the right and a large indirect on the left. I had not talked about repairing the left; therefore, I went and asked his what she would like me to do and she asked that I fix both of them. I I then placed the patient in Trendelenburg, docked the robot and then placed the working instruments, the fenestrated bipolar and the scissors. Looked on the left side and saw a large indirect inguinal hernia. I could see the beginnings of a direct hernia defect on the right side. Next, I came across the peritoneum on the left approximately 8 cm away from the hernia defect, going across laterally from the median umbilical ligament out approximately 17cm. I then carefully dissected the visceral peritoneum away and down and then in the midline, went through the parietal side and dissected down to the pubic tubercle, dissecting this down carefully pushing the peritoneum away, I was able to then visualize the pubic tubercle and Jose's ligament. As I did this I encountered a large hernia on the right; Direct inguinal hernia with fat stuck in it. I went 2 cm posterior and at this point, we then had a critical view of the dissection, able to dissect 2 cm across the midline to the right side, 2 cm posterior to the Jose's ligament, able to then parietalize the vas deferens and spermatic vessels right at the groove between Jose's and iliac vein and able to dissect, make sure there was no peritoneum between those two, able to see the indirect hernia space, took a picture of this, looked at the femoral space (no hernia seen). Then I carefully teased out the hernia sac and could visualize the indirect hernia space. Next I looked on the cord and cord structures. There was a large cord lipoma that I was able to reduce and cut off. This was then removed through the port to get it out of the peritoneal space; at the end of the case. I could clearly see the inguinal canal and the indirect space. Next I carried the posterior lateral dissection all the way out. This was to take care of the planned hernia on the right; this needed to be repaired as well. Therefore, on the right I began dissecting out laterally taking the peritoneum down in order to place mesh. This was carried down and connected to the Left side's dissection. So at this point, I then had a critical view of the dissection on the right. I was able to dissect 2 cm across the midline to the right side, 2 cm posterior to the Jose's ligament, able to then parietalize the vas deferens and spermatic vessels right at the groove between Jose's and iliac vein and able to dissect, make sure there was no peritoneum between those two, able to see the indirect hernia space, took a picture of this, looked at the femoral space and no hernia was seen. Then I carefully teased everything off cord and cord structures (very minimal indirect sac) and could visualize the indirect hernia space. Next I looked on the cord and cord structures. There was a large cord lipoma that I was able to reduce and cut off. This was then removed through the port to get it out of the peritoneal space; at the end of the case. I could clearly see the inguinal canal and the indirect space. I then placed a 12 x 17 Midweight Bard 3DMax mesh, on the right. On the left I placed a 12 x 17 Midweight Bard 3D Max. Both laid in nicely, covered the hernia defects and the rest of the area. It was above the peritoneum, sutured both at the pubic tubercle with a 3-0 Vicryl suture and tied this off. I also sutured out laterally to hold mesh in position with 3-0 Vicryl, both sides. They appeared to lay in very nicely. I then brought down the pneumoperitoneum to about 8 mmHg and then started closing the peritoneum. Started laterally and used a 2-0 V-lock barbed suture to start a running stitch to close the peritoneum. This was done on both sides and closed nicely, took a picture of the closure at this point, then removed all needles had switched to a suture trailer truck driver from the scissors. The patient was then placed back supine, removed all ports under direct visualization, allowed pneumoperitoneum to escape and then closed the supraumbilical incision, closing the fascia with 0 Vicryl suture previously placed. Copiously irrigated all incisions and then closed the two small 8 mm incisions with two interrupted 4-0 undyed Monocryl subcuticular stitches and closed the supraumbilical incision with three interrupted undyed Monocryl subcuticular stitch. Area was cleaned and dried. Dermabond was placed. The patient tolerated the procedure. The sponge, instrument and needle counts were correct at the end of the case. Dr. Russell assisted on this case helping to make incisions, identify anatomy, pass instrumentation suture and mesh. Anesthesia Type GET Estimated Blood Loss Estimated blood loss (mL): appx 50 ml Specimens/Packing Specimens Removed b/l cord lipoma MARILYN SONG DO Nov 04, 2021 15:39
[2021-11-04] MEDS ORDERED: ACHYD1T PO (15:42)
--- NOTE | 2021-11-04 15:44 | Anesthesia-General Post-Op ---
General Patient Condition Mental Status/LOC: Same as Preop Cardiovascular: Satisfactory Nausea/Vomiting: Absent Respiratory: Satisfactory Pain: Controlled Complications: Absent Post Op Complications Complications None Follow Up Care/Instructions Patient Instructions None needed. Anesthesia/Patient Condition Patient Condition Patient is doing well, no complaints, stable vital signs, no apparent adverse anesthesia problems. No complications reported per nursing. SAPPHIRE HUA CRNA Nov 04, 2021 15:44
--- NOTE | 2021-11-04 15:44 | Discharge Inst-Surgical ---
Discharge Inst-Surgical Depart Medication/Instructions New, Converted or Re-Newed RX: Transmitted to Pharmacy Patient Instructions Follow up Appt: Make appointment for 1 week. [phone] Instructions: No lifting greater than 20 pounds. No strenuous activity. May shower in 24 hours, no tub bath or soaking. Use incentive spirometer at home as directed. No Smoking Skin/Wound Care: May remove bandages in am. You need to leave the Dermabond on incision it will fall off on it's own. Symptoms to Report: Appetite Changes, Extremity Discoloration, Numbness/Tingling, Swelling Increased, Bleeding Excessive, Eyesight Changes, Pain Increased, Urine Color Change, Constipation(Persistent), Fever over 101 degree F, Pain/Pressure in chest, Urinating Difficulty, Cough Up/Vomit Blood, Heart Beat Irreg/Pounding, Pain/Pressure in jaw, Cramps in feet or legs, Lightheadedness, Pain/Pressure in shoulder, Diarrhea(Persistent), Memory Changes Suddenly, Questions/Concerns, Weight gain consecutive days, Dizziness/Fainting, Nausea/Vomiting, Shortness of Breath, Weight gain over 2 pounds If questions or concerns contact your physician Or seek help at emergency department. Activity Activity as Tolerated: Yes Activity Instructions: Avoid Stress to Incision Driving Instructions: No Driving/Refer to Dr. Sierra Discharge Diet: No Restrictions Diet After 24 Hours: Clear Liquid if Nauseous If Any Problems/Questions/Issu: Contact Your Physician, Go to Emergency Room Skin/Wound Care Infection Signs and Symptoms: Increased Redness, Foul Odor of Wound, Increased Drainage, Skin Itchy or Has a Rash, Increased Swelling, Temperature Above 101 F Wound Care Comment: Heating pad to shoulder or neck tonight for pain Bathing Instructions: Shower Stitches/[place]/Dermabond Dis: Dermabond Ice Pack: Ice On and Off Site MARILYN SONG DO Nov 04, 2021 15:44
[2021-11-04] MEDS ORDERED: fentaNYL INJ 100 MCG/2 ML AMP IVP ONE (15:45)
[2021-11-04] MEDS ORDERED: ONDANSETRON 4 MG/2 ML (SDV) Z0FRAN IVP PRN (15:45)
== END 2021-11-04 17:46 | disposition home or self-care (01) ==
LOC: SDC 08:28
PROVIDERS: ATTEND Surgery
DX: K40.20 Bilateral inguinal hernia, without obstruction or gangrene, not specified as recurrent (principal); E66.01 Morbid (severe) obesity due to excess calories; Z68.42 Body mass index [BMI] 45.0-49.9, adult; G47.33 Obstructive sleep apnea (adult) (pediatric); Z79.899 Other long term (current) drug therapy; F17.210 Nicotine dependence, cigarettes, uncomplicated; D17.6 Benign lipomatous neoplasm of spermatic cord
CPT/HCPCS: 49650; 55559; 82947; 87081; C1781 ×2

== ENCOUNTER 2022-01-13 03:28 | Emergency (ER) | payer MEDICARE ==
[~2022-01-13] VITALS: Ht 182.8 cm; Wt 137.0 kg
[~2022-01-13 03:28] MED LIST changes: +ACHYD1T PO; +ALBU8.5H6 IH; -RT-ALBUINH IH
--- NOTE | 2022-01-13 03:32 | ED General ---
General Stated Complaint: POSSIBLE STROKE History of Present Illness Date Seen by Provider: Jan 13, 2022 Time Seen by Provider: 03:32 Initial Comments 56-year-old male brought in following an unknown syncopal event. Patient reports the last thing he remembers is around 12[birth year]25[birth year]1929 when he was walking and thinks he fell onto a table. He reports that he woke up couple hours later and "pissed himself" patient is known to drink daily and reports he had a "couple shots of rum" patient is complaining of some posterior right thigh/hamstring pain. He reports it feels like a cramp. He denies any lower leg or calf pain. Patient denies chest pain, shortness of breath both now and prior to his syncopal event Allergies and Home Medications Allergies Coded Allergies: No Known Allergies (Verified Allergy, Unknown, 01/11/17) Patient Home Medication List Home Medication List Reviewed: Yes Albuterol Sulfate (Ventolin Hfa) 1 Puff Puff, 2 PUFF IH Q4H PRN for SHORTNESS OF BREATH, (Reported) Entered as Reported by: LUIS ARAUJO on 01/11/17 0910 Citalopram Hydrobromide (Citalopram HBr) 20 Mg Tablet, 20 MG PO HS, (Reported) Entered as Reported by: LUIS ARAUJO on 01/11/17 09 Flecainide Acetate (Flecainide Acetate) 100 Mg Tablet, 100 MG PO BID, (Reported) Entered as Reported by: LUIS ARAUJO on 01/11/17 09 Furosemide (Furosemide) 40 Mg Tablet, 40 MG PO DAILY, (Reported) Entered as Reported by: LUIS ARAUJO on 01/11/17 09 Hydrocodone Bit/Acetaminophen (HYDROcodone/APAP 10/325 TABLET) 1 Ea Tab, 1 TAB PO Q6H Prescribed by: MARILYN SONG on 11/04/21 1543 Ibuprofen (Advil) 200 Mg Tablet, 800 MG PO BID, (Reported) Entered as Reported by: LUIS ARAUJO on 01/11/17 09 Lansoprazole (Prevacid 24Hr) 15 Mg Capsule.dr, 15 MG PO DAILY, (Reported) Entered as Reported by: LUIS ARAUJO on 01/11/17 09 Lisinopril (Lisinopril) 20 Mg Tablet, 20 MG PO BID, (Reported) Entered as Reported by: LUIS ARAUJO on 01/11/17 09 Metformin HCl (Metformin HCl) 500 Mg Tablet, 1,000 MG PO BID WITH MEALS, (Reported) Entered as Reported by: LUIS ARAUJO on 01/11/17 09 Metoprolol Tartrate (Metoprolol Tartrate) 50 Mg Tablet, 50 MG PO BID, (Reported) Entered as Reported by: LUIS ARAUJO on 01/11/17 09 Nitroglycerin (Nitrostat) 0.4 Mg Tab.subl, 0.4 MG SL UD PRN for CHEST PAIN, (Reported) Entered as Reported by: LUIS ARAUJO on 01/11/17 09 Warfarin Sodium (Warfarin Sodium) 7.5 Mg Tablet, 7.5 MG PO DAILY, (Reported) Entered as Reported by: QUINTON LI on 10/28/21 1210 Review of Systems Review of Systems Constitutional: see HPI; No chills, No dizziness, No fever EENTM: no symptoms reported Respiratory: no symptoms reported Cardiovascular: No chest pain, No palpitations; syncope Gastrointestinal: No abdominal pain, No nausea, No vomiting Genitourinary: No dysuria, No frequency; incontinence Musculoskeletal: No back pain; muscle cramps Skin: no symptoms reported Psychiatric/Neurological: No Symptoms Reported Past Fhupckh-Pqnxld-Tnzlqk Hx Immunizations Up To Date Tetanus Booster (TDap): Unknown PED Vaccines UTD: No First/Initial COVID19 Vaccinat: 2020 Second COVID19 Vaccination Navi: 2020 Third COVID19 Vaccination Date: 2020 Seasonal Allergies Seasonal Allergies: No Past Medical History Surgeries: Yes (R rotator cuff(x2) R total knee, R finger, BL carpal tunnel SX, R hand sx) Respiratory: Yes Sleep Apnea, COPD Currently Using CPAP: Yes Currently Using BIPAP: No Cardiac: Yes Atrial Fibrillation, Hypertension Neurological: Yes TIA Genitourinary: No Gastrointestinal: Yes Gastroesophageal Reflux, Hiatal Hernia Musculoskeletal: Yes Degenerate Disk Disease, Arthritis, Back Injury, Chronic Back Pain Endocrine: Yes Diabetes, Non-Insulin dep HEENT: No Cancer: No Psychosocial: Yes Anxiety, Depression Integumentary: No Blood Disorders: No Adverse Reaction/Blood Tranf: No Family Medical History Cardiovascular disease 19 MOTHER G8 SISTER G8 BROTHER Diabetes mellitus G8 SISTER G8 BROTHER G8 BROTHER FH: breast cancer FH: melanoma 19 MOTHER G8 SISTER No Pertinent Family Hx Physical Exam Vital Signs Vital Signs - First Documented 01/13/22 03:29 Temp 36.1 Pulse 63 Resp 24 B/P (MAP) 141/90 (107) Pulse Ox 96 O2 Delivery Room Air Capillary Refill : Height, Weight, BMI Height: 6'0.00" Weight: 346lbs. 3.2oz. 157.243976gm; 46.09 BMI Method: General Appearance: No Apparent Distress, WD/WN, Other (Smells of alcohol) HEENT: PERRL/EOMI, Pharynx Normal Neck: Normal Inspection, Non Tender, Supple Respiratory: Lungs Clear, Normal Breath Sounds Cardiovascular: Regular Rate, Rhythm, No Edema Gastrointestinal: Non Tender, Soft Extremity: Normal Capillary Refill; No Calf Tenderness; Other (Tenderness right hamstring area) Neurologic/Psychiatric: Alert, Oriented x3, No Motor/Sensory Deficits, metal trim erector II- XII Norm as Tested Skin: Normal Color, Warm/Dry Focused Exam Lactate Level 01/13/22 03:48: Lactic Acid Level 4.76*H 01/13/22 06:00: Lactic Acid Level Laboratory Tests Test 01/13/22 03:48 01/13/22 06:00 Lactic Acid Level 4.76 MMOL/L (0.50-2.00) *H Progress/Results/Core Measures Suspected Sepsis SIRS Temperature: Pulse: Respiratory Rate: Laboratory Tests 01/13/22 03:48: White Blood Count 6.5 Blood Pressure / Mean: 01/13/22 03:48: Lactic Acid Level 4.76*H 01/13/22 06:00: Laboratory Tests 01/13/22 03:48: Creatinine 0.61, Platelet Count 230, Total Bilirubin 0.2 Results/Orders Lab Results Laboratory Tests Test 01/13/22 03:48 01/13/22 04:20 01/13/22 05:11 01/13/22 06:00 Range/Units White Blood Count 6.5 4.3-11.0 10^3/uL Red Blood Count 4.25 L 4.30-5.52 10^6/uL Hemoglobin 14.0 13.3-17.7 g/dL Hematocrit 42 40-54 % Mean Corpuscular Volume 99 80-99 fL Mean Corpuscular Hemoglobin 33 25-34 pg Mean Corpuscular Hemoglobin Concent 33 32-36 g/dL Red Cell Distribution Width 14.9 H 10.0-14.5 % Platelet Count 230 130-400 10^3/uL Mean Platelet Volume 9.4 9.0-12.2 fL Immature Granulocyte % (Auto) 1 % Neutrophils (%) (Auto) 63 42-75 % Lymphocytes (%) (Auto) 29 12-44 % Monocytes (%) (Auto) 6 0-12 % Eosinophils (%) (Auto) 1 0-10 % Basophils (%) (Auto) 1 0-10 % Neutrophils # (Auto) 4.1 1.8-7.8 10^3/uL Lymphocytes # (Auto) 1.9 1.0-4.0 10^3/uL Monocytes # (Auto) 0.4 0.0-1.0 10^3/uL Eosinophils # (Auto) 0.1 0.0-0.3 10^3/uL Basophils # (Auto) 0.0 0.0-0.1 10^3/uL Immature Granulocyte # (Auto) 0.0 0.0-0.1 10^3/uL D-Dimer 0.29 0.00-0.49 UG/ML Sodium Level 146 H 135-145 MMOL/L Potassium Level 3.2 L 3.6-5.0 MMOL/L Chloride Level 107 98-107 MMOL/L Carbon Dioxide Level 20 L 21-32 MMOL/L Anion Gap 19 H 5-14 MMOL/L Blood Urea Nitrogen 11 7-18 MG/DL Creatinine 0.61 0.60-1.30 MG/DL Estimat Glomerular Filtration Rate 112 BUN/Creatinine Ratio 18 Glucose Level 81 70-105 MG/DL Lactic Acid Level 4.76 *H 0.50-2.00 MMOL/L Calcium Level 7.6 L 8.5-10.1 MG/DL Corrected Calcium 8.0 L 8.5-10.1 MG/DL Magnesium Level 1.7 1.6-2.4 MG/DL Total Bilirubin 0.2 0.1-1.0 MG/DL Aspartate Amino Transf (AST/SGOT) 34 5-34 U/L Alanine Aminotransferase (ALT/SGPT) 35 0-55 U/L Alkaline Phosphatase 95 40-136 U/L Troponin I < 0.30 <0.30 NG/ML C-Reactive Protein 0.32 <0.50 MG/DL Total Protein 6.3 L 6.4-8.2 GM/DL Albumin 3.5 3.2-4.5 GM/DL Serum Alcohol 133 H <10 MG/DL Influenza Type A (RT-PCR) Not Detected Not Detecte Influenza Type B (RT-PCR) Not Detected Not Detecte SARS-CoV-2 RNA (RT-PCR) Not Detected Not Detecte Urine Color YELLOW Urine Clarity CLEAR Urine pH 5.5 5-9 Urine Specific [place] 1.025 H 1.016-1.022 Urine Protein 2+ H NEGATIVE Urine Glucose (UA) NEGATIVE NEGATIVE Urine Ketones NEGATIVE NEGATIVE Urine Nitrite NEGATIVE NEGATIVE Urine Bilirubin NEGATIVE NEGATIVE Urine Urobilinogen 0.2 < = 1.0 MG/DL Urine Leukocyte Esterase NEGATIVE NEGATIVE Urine RBC (Auto) NEGATIVE NEGATIVE Urine RBC 0-2 /HPF Urine WBC 0-2 /HPF Urine Squamous Epithelial Cells 0-2 /HPF Urine Crystals PRESENT H /LPF Urine Bacteria NEGATIVE /HPF Urine Casts PRESENT /LPF Urine Hyaline Casts 2-5 H /LPF Urine Mucus MODERATE H /LPF Urine Culture Indicated NO My Orders Orders - SAENZ,STARLA L DO Alcohol (01/13/22 03:36) Cbc With Automated Diff (01/13/22 03:36) Comprehensive Metabolic Panel (01/13/22 03:36) Fibrin Degradation Products (01/13/22 03:36) Lactic Acid Analyzer (01/13/22 03:36) Magnesium (01/13/22 03:36) Procalcitonin (Pct) (01/13/22 03:36) Ua Culture If Indicated (01/13/22 03:36) Crp Fs (01/13/22 03:36) Troponin I Fs (01/13/22 03:36) Influenza A And B By Pcr (01/13/22 03:36) Covid 19 Inhouse Test (01/13/22 03:36) Ct Head Wo-R/O Stroke (01/13/22 03:36) Ns Iv 1000 Ml (Sodium Chloride 0.9%) (01/13/22 03:36) Creatine Kinase (01/13/22 03:36) Ed Iv/Invasive Line Start (01/13/22 03:36) Ekg Tracing (01/13/22 03:36) Monitor-Rhythm Ecg Trace Only (01/13/22 03:36) Femur 2 View Right (01/13/22 03:36) Ed Iv/Invasive Line Start (01/13/22 05:01) Ns Iv 1000 Ml (Sodium Chloride 0.9%) (01/13/22 05:15) Vital Signs/I&O 01/13/22 03:29 Temp 36.1 Pulse 63 Resp 24 B/P (MAP) 141/90 (107) Pulse Ox 96 O2 Delivery Room Air Capillary Refill : Progress Note : Progress Note Patient symptoms likely as result of alcohol intoxication. Patient with negative EKG, head CT. He did have a elevated lactic when he first arrived but this has almost completely resolved through IV fluids. Patient's alcohol is 133 but he has not had intake for at least 4 to 5 hours I suspect it was significantly higher when he fell and likely just passed out from alcohol intoxication. Patient is asking to be discharged home. He is stable upon discharge ECG Initial ECG Impression Date: Jan 13, 2022 Initial ECG Impression Time: 04:05 Initial ECG Rate: 61 Initial ECG Rhythm: Normal Sinus Initial ECG Intervals: Normal Initial ECG Impression: Normal Diagnostic Imaging Diagonstic Imaging: CT Plain Films/CT/US/NM/MRI: head Comments no acute findings Reviewed: Reviewed [place] Study, Discussed w/Radiologist Diagonstic Imaging: Xray Plain Films/CT/US/NM/MRI: other Comments no acute finding, femur xray Departure Impression Primary Impression: Alcohol intoxication Qualified Codes: F10.920 - Alcohol use, unspecified with intoxication, uncomplicated Additional Impression: Syncope and collapse Disposition: 01 HOME, SELF-CARE Condition: Stable Departure-Patient Inst. Referrals: CONRADO SANTAMARIA MD (PCP/Family) Primary Care Physician STARLA SAENZ DO Jan 13, 2022 03:32
[2022-01-13] MEDS ORDERED: NS IV 1000 ML 1,000 ML IV STA (03:36)
[2022-01-13 04:03] LABS: BASOPHILS % (AUTO) 1 % (0-10); EOSINOPHILS # (AUTO) 0.1 10^3/uL (0.0-0.3); EOSINOPHILS % (AUTO) 1 % (0-10); HEMATOCRIT 42 % (40-54); LYMPHOCYTES # (AUTO) 1.9 10^3/uL (1.0-4.0); LYMPHOCYTES % (AUTO) 29 % (12-44); MEAN CORPUSCULAR HEMOGLOBIN 33 pg (25-34); MEAN CORPUSCULAR HGB CONC 33 g/dL (32-36); MEAN CORPUSCULAR VOLUME 99 fL (80-99); MEAN PLATELET VOLUME 9.4 fL (9.0-12.2); MONOCYTES # (AUTO) 0.4 10^3/uL (0.0-1.0); MONOCYTES % (AUTO) 6 % (0-12); NEUTROPHILS # (AUTO) 4.1 10^3/uL (1.8-7.8); NEUTROPHILS % (AUTO) 63 % (42-75); PLATELET COUNT 230 10^3/uL (130-400); WHITE BLOOD COUNT 6.5 10^3/uL (4.3-11.0)
[2022-01-13 04:36] LABS: BUN/CREATININE RATIO 18; CARBON DIOXIDE 20 MMOL/L (21-32); CHLORIDE 107 MMOL/L (98-107); CREATININE SERUM 0.61 MG/DL (0.60-1.30); GFR ESTIMATED 112; GLUCOSE 81 MG/DL (70-105); POTASSIUM 3.2 MMOL/L (3.6-5.0); SODIUM 146 MMOL/L (135-145)
[2022-01-13 04:37] LABS: ALANINE AMINOTRANSFERASE 35 U/L (0-55); ALBUMIN 3.5 GM/DL (3.2-4.5); ALKALINE PHOSPHATASE 95 U/L (40-136); BILIRUBIN,TOTAL 0.2 MG/DL (0.1-1.0); CALCIUM 7.6 MG/DL (8.5-10.1); MAGNESIUM 1.7 MG/DL (1.6-2.4); TOTAL PROTEIN 6.3 GM/DL (6.4-8.2)
[2022-01-13] MEDS ORDERED: NS IV 1000 ML 1,000 ML IV SCH (05:15)
[2022-01-13 05:27] LABS: BILIRUBIN,URINE NEGATIVE (NEGATIVE); CLARITY,URINE CLEAR; COLOR,URINE YELLOW; GLUCOSE, URINE (UA) NEGATIVE (NEGATIVE); KETONES,URINE NEGATIVE (NEGATIVE); LEUKOCYTE ESTERASE ,URINE NEGATIVE (NEGATIVE); NITRITE,URINE NEGATIVE (NEGATIVE); PH,URINE 5.5 (5-9); PROTEIN,URINE 2+ (NEGATIVE)
[2022-01-13 05:40] LABS: RBC,URINE 0-2 /HPF; WBC,URINE 0-2 /HPF
[2022-01-13 05:41] LABS: BACTERIA,URINE NEGATIVE /HPF; SQUAMOUS EPITHELIAL CELL,UR 0-2 /HPF
--- NOTE | 2022-01-13 05:44 | Diagnostic Imaging Report ---
INDICATION: pain, fall COMPARISON: None. FINDINGS: Multiple radiographic views of the right femur were obtained and show no fractures, dislocations, or other acute bony abnormalities. Patient is status post previous right total knee replacement. Visualized portions of the components appear appropriately positioned and well aligned. Right hip joint space is intact as well. The soft tissues appear unremarkable. No unexpected radiopaque foreign bodies are identified. IMPRESSION: Unremarkable radiographic exam of the right femur. Dictated by: Dictated on workstation # [id number]
--- NOTE | 2022-01-13 06:41 | Diagnostic Imaging Report ---
INDICATION: syncope TECHNIQUE: Routine non contrast-enhanced axial images were obtained from the skull base to the vertex. Auto Exposure Controls were utilized during the CT exam to meet ALARA standards for radiation dose reduction COMPARISON: None. FINDINGS: The ventricles and cortical sulci are diffusely prominent, compatible with age-related volume loss. There are confluent areas of abnormal, low attenuation in the periventricular white matter. This is consistent with small vessel ischemic changes; age-indeterminate. There is no prior study available for comparison. There is no midline shift or mass-effect. No acute intra-axial hemorrhage is seen. There are no abnormal areas of increased or decreased density to suggest acute hemorrhage or edema. No extra-axial masses or collections are present. The bony calvarium is intact. The visualized paranasal sinuses are unremarkable. The mastoid air cells are clear. IMPRESSION: 1. No acute intracranial abnormality. No CT evidence of mass, acute infarct or intracranial hemorrhage. 2. Small vessel ischemic changes in the periventricular and subcortical white matter; likely chronic. Dictated by: Dictated on workstation # [id number]
[2022-01-13 07:00] VITALS: BP 142/74
[2022-01-13 15:14] LABS: CREATINE KINASE 84 U/L (30-200)
== END 2022-01-13 07:00 | disposition home or self-care (01) ==
LOC: EDUNIT# 03:28 → ER FS 03:30
DX: F10.129 Alcohol abuse with intoxication, unspecified (principal); R55 Syncope and collapse; R74.02 Elevation of levels of lactic acid dehydrogenase [LDH]; G47.30 Sleep apnea, unspecified; Z20.822 Contact with and (suspected) exposure to COVID-19; Z99.89 Dependence on other enabling machines and devices
CPT/HCPCS: 36415; 70450; 73552; 80053; 81000; 82550; 83605; 83735; 84145; 84484; 85025; 85379; 86141; 87636; 93005; 93041; G0480; 80320